=== PATIENT | female | born 1935 | race Hispanic/Latino ===

== ENCOUNTER → 2021-09-11 | Outpatient (CLI) | payer MEDICARE ==
[~2021-09-11] MED LIST: FUROSEMIDE 20MG VIAL ONE
== END | disposition home or self-care (01) ==
LOC: RAH 13:29
PROVIDERS: ATTEND Urology
DX: Q62.11 Congenital occlusion of ureteropelvic junction (principal); N28.89 Other specified disorders of kidney and ureter; N23 Unspecified renal colic
CPT/HCPCS: 78708; A9562; J1940